=== PATIENT | female | born 1940 ===

== ENCOUNTER → 2025-04-01 10:53 | Outpatient (REF) | payer MEDICARE, BC, SELFPAY | LOC: PAVMRI 10:53 | PROVIDERS: ATTENDING PHYSICIAN Otolaryngology; FAMILY PHYSICIAN Family Medicine | DX: H90.A21 Sensorineural hearing loss, unilateral, right ear, with restricted hearing on the contralateral side (principal); C49.0 Malignant neoplasm of connective and soft tissue of head, face and neck | CPT/HCPCS: 70553; A9575 ==

== ENCOUNTER 2025-04-10 11:03 | Emergency (ER) | payer MEDICARE, BC, SELFPAY ==
[2025-04-10 11:08] VITALS: BMI 31.4
[2025-04-10 11:12] VITALS: BP 128/83
[2025-04-10 11:36] LABS: Hematocrit 35.7 % (37.0-47.0); Hemoglobin 12.3 g/dL (12.0-16.0); Mean Corp Hgb Conc. 34.5 g/dL (33.0-37.0); Mean Corpuscular Volume 95.5 fL (81.0-99.0); Nucleated Red Blood Cells % 0 %; Platelet Count 155 10^3/uL (130-400); Red Cell Dist. Width 13.4 % (11.5-14.5)
--- NOTE | 2025-04-10 11:41 | ED.GENMED ---
History of Present Illness
<Leslee Jordan PA-C - Last Filed: 04/10/25 17:29>
General
Chief Complaint: Fainting Sensation
Source: patient
Exam Limitations: none
Time Seen by Provider: 04/10/25 11:22
History of Present Illness
History of Present Illness:
84yoF with a history of atrial fibrillation on Eliquis and prior TAVR presenting via EMS for evaluation after a syncopal episode. Patient was taking her dog on a walk this morning. She started to feel lightheaded while walking and then 'blacked
out.' Patient is unsure how long she was unconscious for. She did strike her head. She was unable to get up after the fall and EMS had to be activated. This has happened several times in the past but not recently. She believes she was
dehydrated because she only drank coffee today and did not drink any water. She is currently feeling better although is still somewhat lightheaded. She denies any chest pain or shortness of breath.
Phy Exam
<Leslee Jordan PA-C - Last Filed: 04/10/25 17:29>
General Physical Exam
General Presentation: well appearing and no apparent distress
General Skin: warm and dry
General Habitus: normal
General Mental: alert
ENT Exam
ENT Exam: normocephalic and other (Dried blood noted to R cheek)
Eye Exam
Eye Exam: PERRL and conjunctiva normal
Cardiovascular Exam
Cardiovascular Exam: irregularly irregular
Pulmonary Exam
Pulmonary Exam: lungs clear, no respiratory distress, no rales, no crackles, no rhonchi and no wheezing
Neurological Exam
Neurological Exam: alert
[place] Coma Scale
Eye Opening: Spontaneous
Verbal Response: Oriented
Motor Response: Obeys Commands
GCS Total Score: 15
Musculoskeletal Exam
Musculoskeletal Exam: other (R foot abrasion)
Skin Exam
Skin Exam: normal color and warm/dry
Psychiatric Exam
Psychiatric Exam: normal mood/affect
Course
<Leslee Jordan PA-C - Last Filed: 04/10/25 17:29>
Orders/Labs/Results
Orders:
Orders
04/10/25 11:22
EKG [Electrocardiogram (*1)] Urgent
Reason for Study: Syncope
EKG- Treatment ONCE
04/10/25 11:29
CBC/With Diff [Complete Blood Count/With Diff] Urgent
Comprehensive Metabolic Panel Urgent
04/10/25 11:30
Troponin I Urgent
04/10/25 11:40
CT Cervical Spine W/o Iv Contr Urgent
Comment:
Reason For Exam: fall, head injury
Cardiac Monitoring- Treatment ONCE
0.9% Sodium Chloride 500 ml [Nss] 500 ml IV BOLUS
04/10/25 11:41
CT Head W/o Iv Contrast Urgent
Comment:
Reason For Exam: head injury on blood thinners
04/10/25 11:46
Tetanus/Diphth/Acelpertussis [Adacel] 0.5 ml IM .ONCE ONE
Abnormal Lab Results
04/10/25
11:29
RBC 3.74 L 10^6/uL
(4.20-5.40)
Hct 35.7 L %
(37.0-47.0)
MCH 32.9 H pg
(27.0-31.0)
MPV 11.5 H fL
(7.4-10.4)
Chloride 110 H mmol/L
(98-107)
Glucose 113 H mg/dl
(70-99)
04/10/25 11:29
04/10/25 11:29
Vital Signs
Initial and Last Documented VS:
Initial Vital Signs
Temp Resp
98 F 18
04/10/25 11:08 04/10/25 11:08
Last Documented Vital Signs
Temp Pulse Resp BP Pulse Ox
98 F 95 11 148/99 99
04/10/25 11:08 04/10/25 13:45 04/10/25 13:45 04/10/25 13:00 04/10/25 13:45
<Isaías Gibbs Aamir, DO - Last Filed: 04/10/25 13:52>
Orders/Labs/Results
Orders:
Orders
04/10/25 11:22
EKG [Electrocardiogram (*1)] Urgent
Reason for Study: Syncope
EKG- Treatment ONCE
04/10/25 11:29
CBC/With Diff [Complete Blood Count/With Diff] Urgent
Comprehensive Metabolic Panel Urgent
04/10/25 11:30
Troponin I Urgent
04/10/25 11:40
CT Cervical Spine W/o Iv Contr Urgent
Comment:
Reason For Exam: fall, head injury
Cardiac Monitoring- Treatment ONCE
0.9% Sodium Chloride 500 ml [Nss] 500 ml IV BOLUS
04/10/25 11:41
CT Head W/o Iv Contrast Urgent
Comment:
Reason For Exam: head injury on blood thinners
04/10/25 11:46
Tetanus/Diphth/Acelpertussis [Adacel] 0.5 ml IM .ONCE ONE
Abnormal Lab Results
04/10/25
11:29
RBC 3.74 L 10^6/uL
(4.20-5.40)
Hct 35.7 L %
(37.0-47.0)
MCH 32.9 H pg
(27.0-31.0)
MPV 11.5 H fL
(7.4-10.4)
Chloride 110 H mmol/L
(98-107)
Glucose 113 H mg/dl
(70-99)
04/10/25 11:29
04/10/25 11:29
Vital Signs
Initial and Last Documented VS:
Initial Vital Signs
Temp Resp
98 F 18
04/10/25 11:08 04/10/25 11:08
Last Documented Vital Signs
Temp Pulse Resp BP Pulse Ox
98 F 95 11 148/99 99
04/10/25 11:08 04/10/25 13:45 04/10/25 13:45 04/10/25 13:00 04/10/25 13:45
<Leslee Jordan PA-C - Last Filed: 04/10/25 17:29>
MDM/Problems Addressed
Differential Diagnosis Includes:
84yoF presenting after a syncopal episode while walking. Preceded by lightheadedness. Admits she did not drink any water today. No CP/SOB. HR 104 on arrival and afib noted on monitor which she has a history of. She is awake, alert, with a GCS of 15.
Differential diagnosis includes: orthostatic hypotension, dehydration, vasovagal episode, cardiogenic syncope
Initial ED plan: Check cardic labs, EKG, and CT head/cervical spine. IV fluid bolus. Update Tdap.
<Leslee Jordan PA-C - Last Filed: 04/10/25 17:29>
*Pulse Oximetry
SaO2: 95
Oxygen Mode of Delivery: Room air
Patient hypoxic: no
*EKG
Interpreted by ED Provider?: Yes
EKG Intrepretation Date: 04/10/25
Heart Rate: 103
Rate: tachycardiac
Rhythm: a-fib
[place]: normal axis
Interval: normal interval
QRS Pattern: normal QRS
Ischemia: no ischemia
*Critical Care Note
Total Time (30-74mins, 75-104mins- exclusive of procedures): Not Applicable
<Leslee Jordan PA-C - Last Filed: 04/10/25 17:29>
Update Note
Update Note:
Labs unremarkable including normal hemoglobin and glucose. EKG shows afib without ischemic changes and troponin undetectable. CT head/cervical spine negative for traumatic injuries. Patient feeling significantly improved on reassessment. She was
able to ambulate without any further dizziness and feels comfortable with discharge. She was advised to f/u with her PCP and weld technician. Strict ED return precautions reviewed and patient discharged in stable condition.
ED Attending Note
<Leslee Jordan PA-C - Last Filed: 04/10/25 17:29>
-
Portions of this chart may have been created with voice recognition software.� Occasional wrong word or��sound alike� substitutions may have occurred due to the inherent limitations of voice recognition software.
<Isaías Rutledge DO - Last Filed: 04/10/25 13:52>
ED Attending Note
Patient seen and examined by attending physician: Yes
I performed the substantive portion of visit, reviewed & personally made and approve the management plan that is documented in note by myself or ELISHA.: Yes
ED Attending Note:
I evaluated the patient at bedside. Her heart rates have been around 100 and is in A-fib. states that she is in permanent A-fib. She is on Eliquis. Head CT shows no bleed. Basic blood work relatively unremarkable. I offered and
considered keeping the patient in the hospital given the unexplained syncopal event however she feels very comfortable and strongly prefers to go home. On the monitor, she has been in A-fib with rates in the around 100
Discharge Plan
Departure
Patient Disposition: Home (Routine Discharge)
Date of Disposition: 04/10/25
Time of Disposition: 13:59
Patient with high blood pressure during this ER visit?: No
Discharge Problem:
Syncope
Instructions: Syncope (Fainting) (DC)
Prescriptions:
No Action
atorvastatin 40 mg Tablet
40 mg PO DAILY
venlafaxine 75 mg Tablet
75 mg PO DAILY
diltiazem HCl 180 mg Capsule,Extended Release 24 Hr
180 mg PO DAILY
Ocuvite Tablet
1 tab PO DAILY
Eliquis 5 mg Tablet
5 mg PO BID
Referrals:
Morales Winston DO [Family Provider, Family Practice]
Activity Restrictions/Additional Instructions:
Drink plenty of fluids and stay hydrated. Stay in the air conditioning for the next few days.
Please follow-up with your family doctor and weld technician this week. Return to the ER with any new or worsening symptoms including chest pain, shortness of breath, or if you pass out again.
Interventions
Interventions:
*Risk Screen - Suicide Last Done: 04/10/25 11:10
*General Assessment Last Done: 04/10/25 11:15
*Neglect/Abuse Screening Last Done: 04/10/25 11:10
*ED- Fall Risk Assessment Last Done: 04/10/25 11:10
*ED COVID-19 Vaccine History Last Done: 04/10/25 11:10
*ED Influenza Vaccine History Last Done: 04/10/25 11:10
*Nursing Disposition Last Done: 04/10/25 14:10
ED- Cardiac Assessment Last Done: 04/10/25 11:26
ED- Neurological Assessment Last Done: 04/10/25 11:26
Discharge Date and Time
Discharge Date/Time: 04/10/25 14:18
Print Language: [email or web address]
[2025-04-10 11:49] LABS: ALT (SGPT) 17 U/L (0-35); AST (SGOT) 24 U/L (14-36); Albumin 4.1 g/dl (3.5-5.0); Alkaline Phosphatase 102 U/L (38-126); Blood Urea Nitrogen 12 mg/dl (7-17); Calcium 8.4 mg/dl (8.4-10.2); Carbon Dioxide 23 mmol/L (22-30); Chloride 110 mmol/L (98-107); Estimated Creatinine Clearance 56 ml/min; Glucose 113 mg/dl (70-99); Potassium 3.9 mmol/L (3.5-5.1); Sodium 140 mmol/L (135-145); Total Protein 6.9 g/dl (6.3-8.2); eGFR > 60.00
[2025-04-10 12:00] VITALS: BP 135/88
[2025-04-10] MEDS: ADACEL 0.5 ML IM (12:24)
[2025-04-10 12:34] LABS: Troponin I < 0.012 ng/ml
[2025-04-10] MEDS: NSS 500 IV (12:35)
[2025-04-10 13:00] VITALS: BP 148/99
== END 2025-04-10 14:18 | disposition home or self-care (01) ==
LOC: EMR 11:03
PROVIDERS: Physician Assistant; EMERGENCY PHYSICIAN Emergency Medicine; FAMILY PHYSICIAN Family Medicine
DX: R55 Syncope and collapse (principal); S09.90XA Unspecified injury of head, initial encounter; S90.811A Abrasion, right foot, initial encounter; W19.XXXA Unspecified fall, initial encounter; I48.91 Unspecified atrial fibrillation; Z79.01 Long term (current) use of anticoagulants; Z95.2 Presence of prosthetic heart valve; Z23 Encounter for immunization
CPT/HCPCS: 99284; 90471; 96360; 70450; 72125; 80053; 84484; 85025; 90715; 93005